=== PATIENT | female | born 1995 | race Hispanic/Latino ===

== ENCOUNTER 2024-11-17 11:08 | Emergency (ER) | payer MEDICAID ==
[~2024-11-17] VITALS: Ht 162.6 cm; Wt 78.9 kg
--- NOTE | 2024-11-17 11:27 | ERN ---
ED Note History of Present Illness Stated Complaint: VAG BLEEDING X 3 DAYS, 9 WEEKS GESTATION Chief Complaint: Vaginal Bleeding Time Seen by MD: 11:14 Time Seen by Midlevel: 11:14 Dictation: The patient is a 29-year-old female with a history of cardiac surgery , C- section who presents to the emergency department with complaints of vaginal bleeding and low back pain. Patient reports that she is eight weeks . Reports that pain occasionally started as spotting and then today bleeding has gotten worse. Reports bright red bleeding and clots. Reports changing pads 4 times today. Patient is . Patient follows up with pardeep diza. Has not had an ultrasound but it is due for one tomorrow. Patient denies any fevers, nausea or vomiting, denies any abdominal pain or urinary discomfort Allergies: Coded Allergies: No Known Drug Allergies (Unverified Allergy, Unknown, 11/17/24) Home Meds Active Scripts Cephalexin Monohydrate (Keflex) 500 Mg Cap, 500 MG PO QID for 7 Days, #28 CAP Prov:NIA DELVALLE [employer]PERATOR 11/17/24 Past Medical History Past Medical History: No Pertinent History Surgical History: CABG, LMP: Sep 12, 2024 : 3 Para: 2 RN Note Reviewed/Agreed w/PFSH: Yes Review of System Dictation Constitutional: Negative for fever,chills, and weight loss Eyes: Negative for injury, pain,redness, and discharge ENT: Negative for injury,pain or swelling Cardiovascular: Negative for chest pain, palpitations, and edema Respiratory: Negative for shortness of breath, cough, and wheezing, Abdomen/GI: Negative for abdominal pain, nausea, vomiting, diarrhea, and constipation Back: Negative for injury and pain : Negative for injury, positive for vaginal bleeding MS/Extremity: Negative for injury and deformity Skin: Negative for rash, and discoloration Neuro: Negative for headache, weakness, numbness, tingling, and seizure Psych: Negative for suicide ideation, homicidal ideation, and hallucinations Initial Vital Sign VS Vital Signs Date Time Temp Pulse Resp B/P (MAP) Pulse Ox O2 Delivery O2 Flow Rate FiO2 11/17/24 11:08 97.5 65 20 111/67 99 Room Air 0 11/17/24 13:30 21 Physical Exam Dictation Vital Signs reviewed General Appearance: Alert, oriented x 3, no acute distress, well developed, nourished. Head and Face: non-traumatic. Eyes: PERRL, pink conjunctivas, eyelid no trauma, anterior chamber with arcus senilis. Ears: Pinnas intact and no signs of trauma or erythema ear canals clear and no discharge TM no erythema Nose: No discharge, no bleeding. Oropharynx: Mouth normal, tongue pink. pharynx clear,no erythema, tonsils no exudates, no abscesses noted, mucous membrane moist Neck: Supple, non-tender, no thyromegaly, no masses, no JVD, no bruits Breast:Deferred Chest:No tenderness, no crepitus, no paradoxical movement, no retractions Lungs:Clear, well-ventilated, symmetric, no rales, no wheezing, no rhonchi, no stridor, good breath sounds bilaterally Heart: Regular rate, regular rhythm, no murmur, no gallops Vascular: no peripheral edema, Abdomen: Soft, positive bowel sounds, nondistended, no guarding, nontender, no rebound, no masses no hepatomegaly, no splenomegaly, no Epps's sign, no hernias. Rectal: Deferred Genital: Deferred Neurological: Normal speech, motor function intact, sensory function intact Musculoskeletal: Neck nontender, full range of motion, back nontender, full range of motion, Extremities: nontender, full range of motion Skin: Color pink, dry, no turgor, no rash, no lacerations, no abrasions, no con tusions. Lymphatic: Deferred Results (Laboratory/Radiology) Laboratory/Radiology Laboratory Tests Test 11/17/24 11:33 11/17/24 13:57 White Blood Count 6.7 K/uL (4.8-10.8) Red Blood Count 4.40 MIL/uL (4.00-5.50) Hemoglobin 13.4 g/dL (12.0-16.0) Hematocrit 39.6 % (36-48) Mean Corpuscular Volume 90.0 fL (79-99) Mean Corpuscular Hemoglobin 30.5 pg (27.0-33.0) Mean Corpuscular Hemoglobin Concent 33.8 g/dL (32.0-36.0) Red Cell Distribution Width 12.1 % (11.0-15.5) Platelet Count 280 K/uL (130-400) Mean Platelet Volume 10.8 fL (7.5-10.5) H Immature Granulocyte % (Auto) 0.3 % (0-1) Neutrophils (%) (Auto) 64.7 % (40.0-77.0) Lymphocytes (%) (Auto) 26.1 % (21.0-51.0) Monocytes (%) (Auto) 6.1 % (3.0-13.0) Eosinophils (%) (Auto) 2.4 % (0.0-8.0) Basophils (%) (Auto) 0.4 % (0.0-5.0) Neutrophils # (Auto) 4.3 K/uL (1.8-7.7) Lymphocytes # (Auto) 1.8 K/uL (1.0-4.8) Monocytes # (Auto) 0.4 K/uL (0.1-1.0) Eosinophils # (Auto) 0.16 K/uL (0.00-0.70) Basophils # (Auto) 0.03 K/uL (0.00-0.20) Absolute Immature Granulocyte (auto 0.02 K/uL (0-1) Nucleated Red Blood Cells 0.0 % (0.0-0.19) Sodium Level 140 mmol/L (136-145) Potassium Level 3.8 mmol/L (3.5-5.1) Chloride Level 104 mmol/L (101-111) Carbon Dioxide Level 29 mmol/L (21-32) Blood Urea Nitrogen 8 mg/dL (7-18) Creatinine 0.5 mg/dL (0.5-1.0) Glomerular Filtration Rate Calc 130 mL/min (>90) Random Glucose 92 mg/dL (70-105) Total Calcium 9.3 mg/dL (8.5-10.1) Human Chorionic Gonadotropin, Quant 9024 mIU/mL (0-5) H Urine Color LIGHT-ORANGE (YELLOW) Urine Appearance TURBID (CLEAR) Urine pH 5.0 (5.0-8.0) Urine Specific [place] 1.015 (1.001-1.031) Urine Protein 20 mg/dL (NEGATIVE) H Urine Glucose (UA) NEGATIVE mg/dL (NEGATIVE) Urine Ketones 10 mg/dL (NEGATIVE) H Urine Occult Blood LARGE (NEGATIVE) H Urine Nitrate NEGATIVE (NEGATIVE) Urine Bilirubin NEGATIVE mg/dL (NEGATIVE) Urine Urobilinogen 0.2 mg/dL (0.2-1.0) Urine Leukocyte Esterase NEGATIVE Antonino/uL Urine RBC TNTC /HPF (0-1) H Urine WBC TNTC /HPF (0-1) H Urine Bacteria None /HPF (None Seen) REASON: VAGINAL BLEEDING ORDERING PHYSICIAN: NIA DELVALLE PROCEDURE: OB <14 - US OB <14 WEEKS US OB <14 WEEKS HISTORY: No additional history given. COMPARISON: None TECHNIQUE: Obstetrical ultrasound study was performed. FINDINGS: The uterus measures 11.8 x 6.8 x 6.9 centimeter. Both ovaries are not well seen. No evidence of intrauterine gestational sac is seen. In a patient with positive test, differential diagnosis would include early versus ectopic versus missed . Beta-hCG correlation is recommended. There is questionable saclike structure may be related to blighted ovum. No fluid is seen in the cul-de-sac. IMPRESSION: 1. No evidence of intrauterine gestational sac is seen. In a patient with positive test, differential diagnosis would include early versus ectopic versus missed . Beta-hCG correlation is recommended. There is questionable saclike structure may be related to blighted ovum. Labs Reviewed?: Yes ED Course ED Course Orders Procedure Category Date Status Time Cbc With Differential LAB 11/17/24 Complete 11:20 Hcg,Quantitative LAB 11/17/24 Complete 11:20 Us Ob <14 Weeks US 11/17/24 Resulted 11:20 0.9%Nacl 1000ml (Ns PHA 11/17/24 Complete 1000ml) 11:30 Basic Metabolic Panel LAB 11/17/24 Complete 11:20 Acetaminophen 500mg PHA 11/17/24 Complete Tab (Tylenol 500mg T 11:30 Urinalysis Profile LAB 11/17/24 Complete 11:20 Pelvic Exam Set Up CPOE 11/17/24 Transmitted (Er) 14:56 Culture Urine TALA 11/17/24 Logged 15:15 Abo/Rh BBK 11/17/24 Complete 15:45 Ceftriaxone 1g Vial PHA 11/17/24 Complete (Rocephine 1g Inj) 16:00 Morphine 4mg Syg PHA 11/17/24 Complete (Morphine 4mg Syg) 16:00 Ondansetron 4mg Inj PHA 11/17/24 Complete (Zofran 4mg Inj) 16:00 Pathology Request LAB 11/17/24 Logged Tissue 15:48 Current Medications Medications (Trade) Dose Ordered Sig/Catina Route PRN Reason Start Time Stop Time Status Last Admin Dose Admin Acetaminophen (TYLenol 500MG TAB) 1,000 mg ONCE ONCE PO 11/17/24 11:30 11/17/24 11:31 DC 11/17/24 13:38 Ceftriaxone Sodium (ROCEphine 1G INJ) 1 gm ONCE ONCE IVPB 11/17/24 16:00 11/17/24 16:01 DC 11/17/24 16:07 Morphine Sulfate (morPHINE 4MG SYG) 4 mg ONCE ONCE IVP 11/17/24 16:00 11/17/24 16:01 DC 11/17/24 16:07 Ondansetron HCl (zoFRAN 4MG INJ) 4 mg ONCE ONCE IVP 11/17/24 16:00 11/17/24 16:01 DC 11/17/24 16:06 Sodium Chloride 1,000 ml @ 0 mls/hr ONCE ONCE IV 11/17/24 11:30 11/17/24 11:31 DC 11/17/24 13:38 Vital Signs Date Time Temp Pulse Resp B/P (MAP) Pulse Ox O2 Delivery O2 Flow Rate FiO2 11/17/24 14:36 64 12 119/72 99 Room Air* 0 21 11/17/24 13:30 99.0 98 13 119/79 94 Room Air* 0 21 11/17/24 11:08 97.5 65 20 111/67 99 Room Air 0 Medical Decision Making MDM The patient is a 29-year-old female with a history of cardiac surgery , C- section who presents to the emergency department with complaints of vaginal bleeding and low back pain. Patient reports that she is eight weeks . Reports that pain occasionally started as spotting and then today bleeding has gotten worse. Reports bright red bleeding and clots. Reports changing pads 4 times today. Patient is . Patient follows up with pardepe diaz. Has not had an ultrasound but it is due for one tomorrow. Patient denies any fevers, nausea or vomiting, denies any abdominal pain or urinary discomfort CBC showed no leukocytosis, no anemia, chemistry showed no electrolyte imbalance, hCG of 9024, urinalysis with large blood, increase WBCs. Pelvic ultrasound revealed no intrauterine gestational sac. Questionable sac-like structure may be related to be related to blighted ovum. On pelvic exam patient had product of conception in vaginal canal and was removed along with clots. Mild to moderate vaginal bleeding. On physical appears nontoxic. Vital signs remained stable throughout the ER stay. Patient reports that she has an appointment tomorrow morning with her OBGYN. Patient instructed to follow up and not miss her appointment. Patient instructed to return if severe bleeding, weakness or if symptoms worsen. Patient understands and verbalizes discharge instructions. Differential diagnosis: Anemia, during , ectopic Need for hospitalization: Patient does not meet criteria for hospitalization. There are no social concerns with this patient. DX & DISP Disposition: Discharge Departure Impression: Primary Impression: Miscarriage at 8 to 28 weeks gestation Condition: Stable Scripts Cephalexin Monohydrate (Keflex) 500 Mg Cap 500 MG PO QID for 7 Days, #28 CAP Prov: NIA DELVALLE 11/17/24 Additional Instructions: Follow up with the OBGYN tomorrow. Please follow up with your primary doctor in 1-2 days. If you develop severe abdominal pain, severe vaginal bleeding or anything worsens please return to ER. FOLLOW-UP WITH PRIMARY CARE PROVIDER IN 1 TO 2 DAYS. TAKE MEDICATIONS DIRECTED HERE IN THE EMERGENCY ROOM. OKAY TO CONTINUE HOME MEDICATIONS UNLESS OTHERWISE DISCUSSED DURING YOUR VISIT IN THE EMERGENCY ROOM TODAY. RETURN TO YOUR NEAREST EMERGENCY ROOM IF SYMPTOMS WORSEN OR IF THERE IS NO IMPROVEMENT. CALL 911 IF YOU NEED IMMEDIATE ASSISTANCE. TAKE TYLENOL OR MOTRIN [id number] NEEDED AND IF NO CONTRAINDICATIONS ARE PRESENT. INCREASE ORAL HYDRATION. A WOUND CULTURE OR URINE CULTURE WAS ORDERED HERE IN THE EMERGENCY ROOM DEPARTMENT PLEASE FOLLOW-UP WITH PRIMARY CARE PROVIDER AND ADVISE THEM TO GET REPEAT PORTS FROM OUR FACILITY. IF YOU HAD ANY JUAN WRAP/SPLINTS THAT WERE APPLIED HERE, PLEASE DO NOT REMOVE THEM UNTIL YOU SEE YOUR PRIMARY CARE OR SPECIALTY. Time of Disposition: 16:43 I have reviewed the case, and I agree with, Diagnosis and Plan NIA DELVALLE November 17, 2024 11:27
[2024-11-17 11:41] LABS: BASOPHILS # (AUTO) 0.03 K/uL (0.00-0.20); BASOPHILS % (AUTO) 0.4 % (0.0-5.0); EOSINOPHILS # (AUTO) 0.16 K/uL (0.00-0.70); EOSINOPHILS % (AUTO) 2.4 % (0.0-8.0); HEMATOCRIT 39.6 % (36-48); IMMATURE GRANULOCYTE ABSOLUTE 0.02 K/uL (0-1); LYMPHOCYTES # (AUTO) 1.8 K/uL (1.0-4.8); LYMPHOCYTES % (AUTO) 26.1 % (21.0-51.0); MEAN CORPUSCULAR HEMOGLOBIN 30.5 pg (27.0-33.0); MEAN CORPUSCULAR HGB CONC 33.8 g/dL (32.0-36.0); MONOCYTES # (AUTO) 0.4 K/uL (0.1-1.0); MONOCYTES % (AUTO) 6.1 % (3.0-13.0); NEUTROPHILS # (AUTO) 4.3 K/uL (1.8-7.7); NEUTROPHILS % (AUTO) 64.7 % (40.0-77.0); PLATELET COUNT (AUTO) 280 K/uL (130-400); RED CELL DISTRIBUTION WIDTH 12.1 % (11.0-15.5); WHITE BLOOD COUNT (AUTO) 6.7 K/uL (4.8-10.8)
[2024-11-17 11:50] LABS: CREATININE 0.5 mg/dL (0.5-1.0); POTASSIUM 3.8 mmol/L (3.5-5.1)
--- NOTE | 2024-11-17 12:36 | HMCIMG ---
US OB <14 WEEKS HISTORY: No additional history given. COMPARISON: None TECHNIQUE: Obstetrical ultrasound study was performed. FINDINGS: The uterus measures 11.8 x 6.8 x 6.9 centimeter. Both ovaries are not well seen. No evidence of intrauterine gestational sac is seen. In a patient with positive test, differential diagnosis would include early versus ectopic versus missed . Beta-hCG correlation is recommended. There is questionable saclike structure may be related to blighted ovum. No fluid is seen in the cul-de-sac. IMPRESSION: 1. No evidence of intrauterine gestational sac is seen. In a patient with positive test, differential diagnosis would include early versus ectopic versus missed . Beta-hCG correlation is recommended. There is questionable saclike structure may be related to blighted ovum.
[2024-11-17] MEDS: 0.9%NACL 1000ML 1,000 ML IV ONE (13:38)
[2024-11-17] MEDS: acetaMINOPHEN 500 MG TABLET PO ONE (13:38)
[2024-11-17 14:23] LABS: APPEARANCE,URINE TURBID (CLEAR); BILIRUBIN,URINE NEGATIVE (NEGATIVE); COLOR,URINE LIGHT-ORANGE (YELLOW); GLUCOSE, URINE (UA) NEGATIVE (NEGATIVE); KETONES,URINE 10 mg/dL (NEGATIVE); LEUKOCYTE ESTERASE ,URINE NEGATIVE Leu/uL (NEGATIVE); NITRATE,URINE NEGATIVE (NEGATIVE); OCCULT BLOOD,URINE LARGE (NEGATIVE); PROTEIN,URINE 20 mg/dL (NEGATIVE); UROBILINOGEN,URINE 0.2 mg/dL (0.2-1.0)
[2024-11-17 14:24] LABS: ADD UA MICROSCOPIC YES
[2024-11-17 15:14] LABS: RBC,URINE TNTC /HPF (0-1); WBC,URINE TNTC /HPF (0-1)
--- NOTE | 2024-11-17 16:00 | NUR ---
CONSENT FOR DISPOSAL OF PRODUCTS OF CONCEPTION SIGNED. PATIENT REQUEST TO WAIT FOR HUSBANDS ARRIVAL PRIOR TO TAKING CONTENTS TO LABORATORY. LAB TURN AROUND TIME VERIFIED WITH LAB.
[2024-11-17] MEDS: ondanSETRON 4MG INJ IVP ONE (16:06)
[2024-11-17] MEDS: cefTRIAXone 1G VIAL IVPB ONE (16:07)
[2024-11-17] MEDS: morPHINE 4 MG SYG IVP ONE (16:07)
[2024-11-17] MEDS ORDERED: CEPH500B PO (16:47)
--- NOTE | 2024-11-17 17:00 | NUR ---
DISPOSITION PENDING; PATIENT AWAITING FOR TRANSPORT
[2024-11-17 18:00] VITALS: BP 104/65; PULSE 89; RESP 12; TEMP 98.5; O2SAT 99
== END 2024-11-17 19:00 | disposition home or self-care (01) ==
LOC: EDH 11:08
DX: O03.9 Complete or unspecified spontaneous abortion without complication (principal); R10.2 Pelvic and perineal pain; Z3A.08 8 weeks gestation of pregnancy; Z79.899 Other long term (current) drug therapy; Z98.890 Other specified postprocedural states; Z95.1 Presence of aortocoronary bypass graft
CPT/HCPCS: 99285; 96365; 76801; 96375; 80048; 84702; 85025; 86900; 86901; 87086; 81001; 36415; 88305; J7030; J0696; J2405; J2270